=== PATIENT | female | born 1965 | race Asian ===

== ENCOUNTER 2025-03-20 08:15 | Outpatient (CLI) | payer BC, SELFPAY ==
--- NOTE | ~2025-03-20 | DEXA_ITS ---
Bone Density Report Name: IVY MAX Age: 59 Sex: Female Ethnicity: Date of : 1965 Indication: postmenopausal osteoporosis; height loss; Referring Provider: SCOTTY BERMAN Study: Bone densitometry was performed. Exam Date: March 20, 2025 Accession number: [id number] Bone Density: Region BMD T-score Z-score Classification AP Spine(L1-L4) 0.748 -2.7 -1.5 Osteoporosis Femoral Neck (Left) 0.449 -3.6 -2.4 Osteoporosis Total Hip (Left) 0.546 -3.2 -2.4 Osteoporosis Femoral Neck (Right) 0.465 -3.5 -2.3 Osteoporosis Total Hip (Right) 0.585 -2.9 -2.1 Osteoporosis Total Hip Mean 0.566 -3.1 -2.3 Osteoporosis World Health Organization criteria for BMD impression classify patients as: Normal (T-score at or above -1.0), Osteopenia (T-score between -1.0 and -2.5), or Osteoporosis (T-score at or below -2.5). 10-year Fracture Risk: FRAX not reported because: Some T-score for Spine Total or Hip Total or Femoral Neck at or below -2.5 Previous Exams: -- Region Exam Age BMD T-score BMD Change BMD Change Date g/cm2 vs Baseline vs Previous -- AP Spine (L1-L4) 03/20/2025 59 0.748 -2.7 -7.6%* -7.6%* 06/17/2019 53 0.809 -2.2 Total Hip(Left) 03/20/2025 59 0.546 -3.2 -9.4%* -9.4%* 06/17/2019 53 0.602 -2.8 Total Hip(Right) 03/20/2025 59 0.585 -2.9 -11.7%* -11.7%* 06/17/2019 53 0.663 -2.3 -- *Denotes significance at 95% confidence level, LSC for AP Spine = 0.022 g/cm2, LSC for Total Hip = 0.027 g/cm2 Clinical Information Provided by Patient: Has used the following medications: HRT (i.e. estrogen/hormone therapy), Vitamin D, Calcium Patient maximum height was 62 Menopause Age: 52 Drinks caffeinated beverages Onset of menses at age 15 Number of children 1 Impression: The patient has osteoporosis, based on the Left Femoral Neck T-score. The BMD for the AP Spine (L1-L4) decreased, changing by -7.6% since the last DXA exam. The BMD for the Total Hip(Left) decreased, changing by -9.4% since the last DXA exam. The BMD for the Total Hip(Right) decreased, changing by -11.7% since the last DXA exam. Discussion: HIGH RISK OF FRACTURE. BONE DENSITY IS UNDESIRABLY LOW AT ONE OR MORE SKELETAL SITES, CONSISTENT WITH OSTEOPOROSIS. ALSO, BONE DENSITY IS LOWER THAN EXPECTED FOR AGE AND SEX AT ONE OR MORE SKELETAL SITES; RECOMMEND A DILIGENT SEARCH FOR SECONDARY CAUSES OF BONE LOSS. This patient's lowest T-score meets the World Health Organization's (WHO) criteria for osteoporosis at one or more sites (T-score -2.5 or below). In untreated patients, the risk of osteoporotic fracture increases approximately two-fold for each 1.0 SD decrease in T-score. Low bone density is not the only risk factor for fracture; also consider factors such as patient's age, frailty or poor health, risk of falling, risk of injury, previous osteoporotic fracture, family history of osteoporosis, cigarette smoking, low body weight, etc. Not everyone with low bone mineral density has osteoporosis; osteomalacia and other metabolic bone disorders should also be considered. Patients who have osteoporosis should be evaluated for specific diseases and conditions (secondary causes) that may cause or contribute to bone loss. The [place] [employer]ocrin[employer] (AACE) and National Osteoporosis Foundation (NOF) recommend pharmacologic intervention for all postmenopausal women whose T-score is in this range. Also, this patient's bone mineral density is below the range considered normal for healthy age-, sex-, and race-matched controls at least one site (Z-score -2.0 or below). This warrants careful evaluation for diseases and conditions that may contribute to accelerated bone loss. The patient should follow a healthful lifestyle (good nutrition with adequate calcium and vitamin D, and appropriate weight-bearing exercise). Follow-Up: Consider a repeat BMD and Vertebral Fracture Assessment (VFA) exam in 2 years or sooner if medically necessary, to reassess this patient's status. Reported by: FREIDA on 03/20/2025 8:40:00 AM. Reviewed, dictated and finalized at location A.
== END 2025-03-20 08:16 | disposition home or self-care (01) ==
LOC: MICIMG 08:16
PROVIDERS: PCP Family Medicine; Visit Provider Obstetrics & Gynecology Gynecology
DX: M81.0 Age-related osteoporosis without current pathological fracture (principal); Z78.0 Asymptomatic menopausal state
CPT/HCPCS: 77080

== ENCOUNTER 2025-04-30 02:24 | Day surgery (SDC) | payer BC, SELFPAY ==
[2025-04-17 13:57] VITALS: BMI 17.9
[2025-04-30 09:59] VITALS: BP 98/74; PULSE 95; RESP 12; TEMP 37.1; O2SAT 97
[2025-04-30] MEDS: LACTATED RINGERS 1,000 ML 150 ML IV CONT (10:06)
--- NOTE | 2025-04-30 10:09 | WPDANESEPPF ---
Anes - Initial Pre Proc Eval Procedure: Operation Date: 04/30/25 11:00 Proposed Procedures p Screening Colonoscopy - Alec Kiran DO Date/Time: 04/30/25 10:09 Surgeon: Alec Kiran DO Pre Op Diagnosis: Neoplasm screening Patient Data Age: 59 Gender: F Height: 1.55 m Weight: 41.4 kg Last Vital Signs Temp 37.1 C 04/30/25 09:59 Pulse 95 04/30/25 09:59 Resp 12 04/30/25 09:59 BP 98/74 L 04/30/25 09:59 Pulse Ox 97 04/30/25 09:59 O2 Del Method Room Air 04/30/25 09:59 Allergies Allergy/AdvReac Type Severity Reaction Status Date / Time No Known Allergies AdvReac Unknown Verified 04/30/25 09:58 Home Medications ?Medication ?Instructions ?Recorded ?Confirmed ?Type cholecalciferol (vitamin D3) 50 2,000 unit PO DAILY 04/17/25 04/30/25 History mcg (2,000 unit) tablet (D3 DOTS) magnesium 200 mg tablet 200 mg PO DAILY 04/17/25 04/30/25 History omega 3 350 mg-dha 235 mg-epa 90 1 cap PO DAILY 04/17/25 04/30/25 History mg-fish oil 597 mg capsule,delay rel ([place]-3) Patient hx anesthesia problems: none Family hx anesthesia problems: none Results Review: All pre-operative results and documents have been reviewed as part of the pre-operative evaluation. PMFSH Family History Family History Mother Cancer Social History Social History Smoking status: Never smoker Second hand tobacco smoke exposure: No Alcohol intake: never Substance use: never Substance use type: does not use Do You Feel Safe in your Home?: Yes Lack of Transportation: No Lack of Food: Never True Current Housing: I Have Housing Concerned About Future Housing: No Difficulty Paying Gas/Electric Bills: No Difficulty Paying for Meds: No Currently Unemployed: No Difficulty w/ Childcare or Family Care: No Living arrangements: with family Additional living arrangements comments: with sp Gender identity (if verbalized by the patient): Female Sexual Orientation (if Verbalized by the Patient): Straight or Heterosexual Spiritual care concerns: No Agree to blood products: No Anes - Eval Final PreProcedure Day of Procedure 04/30/25 10:09 Patient weight: normal Heart: regular rate and rhythm Lungs: clear to auscultation and normal air movement Airway: Mallampati scale class II Neurological: alert and oriented Last oral intake: >/= 8 hours ASA classification: II Emergent: no Anesthetic plan: proceed Anesthesia type and monitoring: general GIVS and standard monitoring Results Review: All pre-operative results and documents have been reviewed as part of the pre-operative evaluation. Informed Consent: The patient's anesthetic plan and its attendant risks and benefits were discussed with the patient/family/POA. Questions were solicited and answers provided to the satisfaction of the patient/family/POA.
--- NOTE | 2025-04-30 11:17 | PM.IMHP ---
H&P: HPI History of Present Illness Date/Time: 04/30/25 11:17 Chief Complaint: screening for colorectal cancer Narrative: this is a 59-year-old woman who presents for her 1st colonoscopy. She denies any hematochezia or melena. She denies any family history of colon cancer. Review of Systems Review of Systems: All systems reviewed & are unremarkable except as noted in HPI and below Constitutional: Constitutional: Denies chills, Denies fever(s), Denies headache(s) and Denies weight loss Eyes: Eyes: Denies change in vision ENT: Denies dizziness, Denies headache(s), Denies neck mass and Denies throat swelling Cardiovascular: Cardiovascular: Denies chest pain, Denies lightheadedness and Denies dyspnea Respiratory: Respiratory: Denies cough, Denies dyspnea and Denies wheezing Gastrointestinal: Gastrointestinal: Denies abdominal pain, Denies change in bowel habits, Denies nausea and Denies vomiting Genitourinary: Genitourinary: Denies hematuria and Denies dysuria Musculoskeletal: Musculoskeletal: Reports as per HPI Integumentary/Breasts: Skin/Breast: Reports as per HPI Neurologic: Denies dizziness and Denies headache(s) Allergic/Immunologic: Allergic/Immunologic: Denies throat swelling and Denies wheezing [facility] Family History Family History Mother Cancer Social History Social History Smoking status: Never smoker Second hand tobacco smoke exposure: No Alcohol intake: never Substance use: never Substance use type: does not use Do You Feel Safe in your Home?: Yes Lack of Transportation: No Lack of Food: Never True Current Housing: I Have Housing Concerned About Future Housing: No Difficulty Paying Gas/Electric Bills: No Difficulty Paying for Meds: No Currently Unemployed: No Difficulty w/ Childcare or Family Care: No Living arrangements: with family Additional living arrangements comments: with sp Gender identity (if verbalized by the patient): Female Sexual Orientation (if Verbalized by the Patient): Straight or Heterosexual Spiritual care concerns: No Agree to blood products: No Meds Home Medications and Allergies Home Medications ?Medication ?Instructions ?Recorded ?Confirmed ?Type cholecalciferol (vitamin D3) 50 2,000 unit PO DAILY 04/17/25 04/30/25 History mcg (2,000 unit) tablet (D3 DOTS) magnesium 200 mg tablet 200 mg PO DAILY 04/17/25 04/30/25 History omega 3 350 mg-dha 235 mg-epa 90 1 cap PO DAILY 04/17/25 04/30/25 History mg-fish oil 597 mg capsule,delay rel ([place]-3) Allergies Allergy/AdvReac Type Severity Reaction Status Date / Time No Known Allergies AdvReac Unknown Verified 04/30/25 09:58 Vital Signs Vital Signs - 24 hr 04/30/25 09:59 Temperature 98.7 F Pulse Rate 95 Respiratory Rate 12 Blood Pressure 98/74 L Pulse Oximetry 97 Oxygen Delivery Room Air Exam Const: General: no acute distress and alert Orientation/consciousness: patient oriented x3 HENMT: Head: normocephalic and atraumatic Ears: hearing grossly normal bilaterally Face/Nose/Sinus: Normal nares present Mouth: Yes Normal oral and palatal mucosa present Eyes: Periorbital: periorbital findings normal Sclera: sclerae normal EOM: EOMs intact bilaterally Neck: Neck: normal visual inspection, no lymphadenopathy and trachea midline Chest: Chest palpation & inspection: normal inspection of the chest Resp: Effort & Inspection: normal respiratory effort Auscultation: clear to auscultation bilaterally Cardio: Jugular venous distension: no JVD Rate: regular rate Rhythm: regular rhythm Heart sounds: S1 normal heart sound present and S2 normal heart sound present Peripheral pulses: Peripheral pulses 2+ throughout GI: Inspection: normal to inspection GI Palp: Yes Soft to palpation, No Tenderness to palpation present (GI), No Guarding due to palpation present (GI) and No Rebound tenderness present Percussion: Yes normal to percussion Auscultation: normal bowel sounds : General: Yes no CVA tenderness Back/Spine/Pelvis: Back: no CVA tenderness Neuro: General: patient oriented x3, no focal motor deficits and CN's II-XI intact bilaterally Cognition (Neuro): normal cognition Speech: normal speech Motor exam (neuro): 5/5 motor strength present throughout Extrem: General: capillary refill normal and no clubbing, cyanosis or edema Assessment and Plan Assessment and plan (1) Screening for colorectal cancer: Code(s): Z12.11 - Encounter for screening for malignant neoplasm of colon; Z12.12 - Encounter for screening for malignant neoplasm of rectum Status: Acute Assessment and Plan: I have recommended colonoscopy. I have discussed the procedure, risks, benefits, and alternatives. Questions were answered. Patient is agreeable to proceed.
[2025-04-30 11:48] VITALS: BP 74/45; PULSE 68; RESP 20; O2SAT 98
[2025-04-30 11:58] VITALS: BP 81/50; PULSE 64; RESP 20; O2SAT 98
[2025-04-30 12:08] VITALS: BP 99/70; PULSE 75; RESP 20; O2SAT 98
--- NOTE | 2025-04-30 13:23 | S_PTH ---
PATIENT: Jennifer Grace LOC: [facility]#:[id number] AGE/SX: 59/F ROOM: RE04/30/[address]: Alec Kiran DO : 1965 BED: DIS: 04/30/2025 SPEC #: [id number] RECD: 04/30/25 13:27 STATUS: SHILPI REBrown #: [id number] MARLENA: 04/30/25 13:[address]: Alec Kiran DEPT: [facility] Surgical RECD BY: Lalita Huntley ENTERED: 04/30/25 13:27 SP TYPE: Surgical OTHR DR: La Yen PA-C Tissues: A - Colon Polypectomy Procedures: Hematoxylin and Eosin Stain Gross and Microscopic Level 4
== END 2025-04-30 12:21 | disposition home or self-care (01) ==
PROVIDERS: PCP Student in an Organized Health Care Education/Training Program; Visit Provider Surgery
PROC: 0DJD8ZZ Inspection of Lower Intestinal Tract, Via Natural or Artificial Opening Endoscopic (ICD-10-PCS; CPT 45378; principal; 2025-04-30 11:00)
DX: Z12.11 Encounter for screening for malignant neoplasm of colon (principal); K63.5 Polyp of colon; Z80.9 Family history of malignant neoplasm, unspecified
CPT/HCPCS: 45380; 88305; J2003; J2704; J7120